=== PATIENT | female | born 1990 | race Caucasian/White ===

== ENCOUNTER 2018-04-08 06:15 | Emergency (ER) | payer OTHER ==
[~2018-04-08] VITALS: Ht 165.1 cm; Wt 101.6 kg
[~2018-04-08 06:15] MED LIST: ESTR2TAB6 PO; METF-336 PO; NAPR-54 PO; SULF500T6 PO
[2018-04-08 06:17] VITALS: BP 137/89
[2018-04-08] MEDS ORDERED: METF1000 PO (06:22)
--- NOTE | 2018-04-08 06:22 | NUR ---
PT AMBULATED TO BED 11 WITH VSS.
--- NOTE | 2018-04-08 06:25 | NUR ---
PATIENT PRESENTS TO ED WITH URINARY BURNING X5 HOURS. PATIENT STATES 7/10 PAIN WHEN URINATING. PATIENT DENIES ANY FLANK PAIN AT THIS TIME, DENIES LOWER ABDOMINAL PAIN, PATIENT DENIES FEVERS, N/V, PATIENT DENIES ANY DISCOLORATION IN DISCHARGE OR VAGINAL BLEEDING. NO SIGNS OR SYMPTOMS OF ACUTE DISTRESS NOTED AT THIS TIME. ER MD MADE AWARE OF PATIENT STATUS WILL CONTINUE TO MONITOR.
[2018-04-08] MEDS ORDERED: NACL 0.9% 1,000 ML IV SCH (06:43)
[2018-04-08] MEDS ORDERED: ONDANSETRON 4 MG/2 ML VIAL IVP ONE (06:45)
[2018-04-08] MEDS ORDERED: MORPHINE SULFATE 4 MG/ML SYR IVP ONE (06:45)
[2018-04-08] MEDS ORDERED: KETOROLAC 30 MG/ML VIAL IVP ONE (06:45)
[2018-04-08] MEDS ORDERED: MORPHINE SULFATE 4 MG/ML SYR ONE (06:50)
[2018-04-08 07:02] LABS: BILIRUBIN,URINE NEGATIVE (NEGATIVE); COLOR,URINE YELLOW (YELLOW); LEUKOCYTE ESTERASE ,URINE 1+ (NEGATIVE); NITRITE, URINE NEGATIVE (NEGATIVE); PH,URINE 6.5 (5.0-9.0); UGLUCOSE NEGATIVE (NEGATIVE)
[2018-04-08 07:04] LABS: APPEARANCE,URINE SLIGHTLY HAZY (CLEAR)
[2018-04-08 07:19] LABS: BLOOD, URINE 1+ (NEGATIVE); RBC,URINE 0-5 (RARE) /HPF (0-5)
--- NOTE | 2018-04-08 07:20 | NUR ---
RECIEVED REPORT FROM LISA WATERS.
[2018-04-08 07:22] LABS: HEMOGLOBIN 13.8 g/dL (12.0-16.0); RED BLOOD CELL COUNT(AUTO) 5.41 MIL/uL (4.20-5.40); WHITE BLOOD COUNT (AUTO) 10.6 K/uL (4.8-10.8)
[2018-04-08 07:23] LABS: BASOPHILS # (AUTO) 0.1 K/uL (0.00-0.22); BASOPHILS % (AUTO) 1.1 % (0.0-2.0); EOSINOPHILS # (AUTO) 0.4 K/uL (0-0.4); EOSINOPHILS % (AUTO) 3.7 % (0.0-4.0); HEMATOCRIT 42.3 % (36-48); LYMPHOCYTES # (AUTO) 3.1 K/uL (2.5-16.5); LYMPHOCYTES % (AUTO) 29.5 % (20.5-51.1); MEAN CORPUSCULAR HEMOGLOBIN 26 pg (27-31); MEAN CORPUSCULAR HGB CONC 33 g/dL (33-37); MEAN CORPUSCULAR VOLUME 78.1 fL (80-94); MONOCYTES # (AUTO) 0.7 K/uL (0.8-1.0); MONOCYTES % (AUTO) 6.9 % (1.7-9.3); NEUTROPHILS # (AUTO) 6.3 K/uL (1.8-7.7); NEUTROPHILS % (AUTO) 58.8 % (42.2-75.2); PLATELET COUNT (AUTO) 296 K/uL (140-450); RED CELL DISTRIBUTION WIDTH 14.4 % (11.6-13.7)
--- NOTE | 2018-04-08 07:24 | NUR ---
PT TAKEN TO CT IN DEEPAK
[2018-04-08 07:33] LABS: ALBUMIN 4.1 g/dL (3.4-5.0); ANION GAP 11.4 (8-16); CARBON DIOXIDE 28.3 mmol/L (21-32); CREATININE 0.8 mg/dL (0.6-1.3); POTASSIUM 3.7 mmol/L (3.5-5.1); TOTAL BILIRUBIN 0.5 mg/dL (0.0-1.0)
[2018-04-08 08:23] VITALS: BP 132/86
--- NOTE | 2018-04-08 08:23 | NUR ---
Patient discharged with v/s stable. Written and verbal after care instructions given and explained. Patient alert, oriented and verbalized understanding of instructions. Ambulatory with steady gait. All questions addressed prior to discharge. ID band removed. Patient advised to follow up with PMD. Rx of norco, macrobid, and colace given. Patient educated on indication of medication including possible reaction and side effects. Opportunity to ask questions provided and answered.
== END 2018-04-08 08:23 | disposition home or self-care (01) ==
LOC: MED 06:15
DX: N39.0 Urinary tract infection, site not specified (principal); Q63.1 Lobulated, fused and horseshoe kidney; E11.9 Type 2 diabetes mellitus without complications; Z88.1 Allergy status to other antibiotic agents; Z79.84 Long term (current) use of oral hypoglycemic drugs
CPT/HCPCS: 36415; 74176; 80053; 81001; 81025; 83690; 85025; 87086; 96374; 96375; 99285; J1885; J2270; J2405

== ENCOUNTER 2018-08-28 03:25 | Emergency (ER) | payer OTHER ==
[~2018-08-28] VITALS: Ht 165.1 cm; Wt 104.3 kg
[~2018-08-28 03:25] MED LIST changes: -ESTR2TAB6 PO; -METF-336 PO; +METF1000 PO; -NAPR-54 PO; -SULF500T6 PO
[2018-08-28 03:27] VITALS: BP 154/98
--- NOTE | 2018-08-28 03:27 | NUR ---
PT TAKEN TO BED 9
--- NOTE | 2018-08-28 03:50 | NUR ---
28/F PRESENTS TO ED WITH FAMILY/FRIEND, C/O 04/03 R SIDED ABD PAIN, STARTED 8 HRS AGO, PT SLEPT AND WOKE UP WITH THE PAIN THIS AM. PT ALSO C/O BURNING WITH URINATION. PT DENIES FEVER, N/V/D OR CONSTIPATION. REPORTS TAKING PEPTO-BISMOL WITH NO RELIEF. AOX4, GCS 15, AMBULATORY, RR EVEN AND UNLABORED. LUNG SOUNDS CLEAR. BS ACTIVE X4, ABD SOFT ROUND NONTENDER. BLOOD SUGAR 202. HX DM
--- NOTE | 2018-08-28 03:59 | NUR ---
Dr. Alfonso evaluating patient at bedside.
[2018-08-28] MEDS ORDERED: KETOROLAC 60 MG/2 ML VIAL IM ONE (04:05)
--- NOTE | 2018-08-28 04:20 | NUR ---
PT TAKEN TO XRAY
[2018-08-28 04:50] VITALS: BP 145/88
--- NOTE | 2018-08-28 04:50 | NUR ---
Patient discharged with v/s stable. Written and verbal after care instructions given and explained. Patient alert, oriented and verbalized understanding of instructions. Ambulatory with steady gait. All questions addressed prior to discharge. ID band removed. Patient advised to follow up with PMD. Rx of Cipro, Senakot, Motrin, and Mineral Oil given. Patient educated on indication of medication including possible reaction and side effects. Opportunity to ask questions provided and answered.
== END 2018-08-28 04:50 | disposition home or self-care (01) ==
LOC: MED 03:25
DX: K59.00 Constipation, unspecified (principal); N39.0 Urinary tract infection, site not specified; R03.0 Elevated blood-pressure reading, without diagnosis of hypertension; E11.9 Type 2 diabetes mellitus without complications; Z88.3 Allergy status to other anti-infective agents; Z88.2 Allergy status to sulfonamides; Z79.84 Long term (current) use of oral hypoglycemic drugs
CPT/HCPCS: 74022; 81002; 81025; 82948; 96372; 99283; J1885